=== PATIENT | male | born 1950 ===

== ENCOUNTER → 2017-01-04 | Outpatient (CLI) | payer MEDICARE, OTHER ==
[~2017-01-04] MED LIST: ALDACTONE25 MG PO; ASPIRIN325 MG PO; CELEBREX100 MG PO; CENTRUM SILVER1 TAB PO; COREG25 MG PO; COZAAR100 MG PO; CPAP INH; LIPITOR40 MG PO; NIACIN CONTROL500 MG PO; PERCOCET 5-3251 EACH PO; PRILOSEC20 MG PO; PROSCAR5 MG PO; STOOL SOFTENER100 M1 PO
== END | disposition disaster alternative care site (69) ==
LOC: GRAD 13:54
DX: R07.89 Other chest pain (principal); R06.00 Dyspnea, unspecified; R79.89 Other specified abnormal findings of blood chemistry
CPT/HCPCS: Q9967

== ENCOUNTER → 2017-01-04 | Outpatient (CLI) | payer MEDICARE, OTHER ==
[2017-01-04 12:36] LABS: CPK 65 IU/L (35-332)
== END | disposition disaster alternative care site (69) ==
LOC: LGSMG 12:15
PROVIDERS: Internal Medicine
DX: R07.89 Other chest pain (principal)

== ENCOUNTER → 2017-03-17 | Outpatient (CLI) | payer MEDICARE, OTHER ==
[2017-03-17 09:07] LABS: ALBUMIN 3.8 gm/dL (3.5-5.0); TOTAL PROTEIN 6.9 g/dL (6.0-8.4)
== END ==
LOC: LCNC 08:26
PROVIDERS: Internal Medicine Interventional Cardiology
DX: E78.5 Hyperlipidemia, unspecified (principal)